=== PATIENT | male | born 1995 | race Caucasian/White ===

== ENCOUNTER 2021-12-06 12:05 | Emergency (ER) | payer BC, OTHER ==
[~2021-12-06] VITALS: Ht 170.2 cm; Wt 113.4 kg
[2021-12-06 12:09] VITALS: BP 144/89
[2021-12-06 13:00] VITALS: BP 139/84
== END 2021-12-06 13:01 | disposition home or self-care (01) ==
LOC: MED 12:05
DX: N99.820 Postprocedural hemorrhage of a genitourinary system organ or structure following a genitourinary system procedure (principal); E11.9 Type 2 diabetes mellitus without complications; I10 Essential (primary) hypertension; Z90.49 Acquired absence of other specified parts of digestive tract
CPT/HCPCS: 81002; 99282